=== PATIENT | female | born 1965 | race Caucasian/White ===

== ENCOUNTER 2024-09-16 05:44 | Day surgery (SDC) | payer BC ==
[2024-09-13 12:04] VITALS: BMI 37.0
[2024-09-16] MEDS ORDERED: SUGAMMADEX SODIUM 200 MG/2 ML VIAL ONE (06:23)
[2024-09-16] MEDS ORDERED: PROPOFOL 40 ML ONE (06:23)
[2024-09-16] MEDS ORDERED: Rocuronium Bromide 10 MG/ML (10ML VIAL) ONE (06:23)
[2024-09-16] MEDS ORDERED: Dexamethasone 4 mg/ml Vial ONE (06:23)
[2024-09-16] MEDS ORDERED: Lidocaine 1% PF 5 ML VIAL ONE (06:23)
[2024-09-16] MEDS ORDERED: Ondansetron PF 4 MG/2 ML Vial ONE (06:23)
[2024-09-16] MEDS ORDERED: fentaNYL 50 mcg/mL 1 mL Vial ONE (06:25)
[2024-09-16] MEDS ORDERED: Clindamycin/D5W 600 mg/50 ml Premix Bag ONE (07:00)
[2024-09-16] MEDS ORDERED: Midazolam HCl 2 mg/2 ml Vial ONE (07:00)
[2024-09-16] MEDS ORDERED: Lidocaine 2% PF 5 ML VIAL ONE (07:01)
[2024-09-16] MEDS ORDERED: PHENYLEPHRINE-NS 100 MCG/ML 10 ML SYRINGE ONE (07:20)
[2024-09-16] MEDS ORDERED: ePHEDrine Sulfate 50 MG/10 ML VIAL ONE (07:44)
[2024-09-16] MEDS ORDERED: Mupirocin 2% Ointment 22 GM Tube ONE (07:56)
[2024-09-16] MEDS ORDERED: Lidocaine 1% w/Epinephrine 1:100K 20 ML VIAL ONE (07:56)
[2024-09-16] MEDS ORDERED: Atropine Sulfate 0.4 mg/1 ml Vial ONE (08:17)
[2024-09-16] MEDS ORDERED: HYDROcodone/Acetaminophen 5/325 mg Tablet ONE (08:55)
== END 2024-09-16 09:30 | disposition home or self-care (01) ==
LOC: CSHSDC 05:44
PROVIDERS: ATTEND Otolaryngology Plastic Surgery within the Head & Neck
PROC: 09H Ear, Nose, Sinus, Insertion (ICD-10-PCS; principal; 2024-09-16)
DX: H90.A31 Mixed conductive and sensorineural hearing loss, unilateral, right ear with restricted hearing on the contralateral side (principal); I10 Essential (primary) hypertension; K21.9 Gastro-esophageal reflux disease without esophagitis; H65.01 Acute serous otitis media, right ear; H65.23 Chronic serous otitis media, bilateral; H69.83 Other specified disorders of Eustachian tube, bilateral; J30.9 Allergic rhinitis, unspecified; J34.3 Hypertrophy of nasal turbinates; J32.0 Chronic maxillary sinusitis; J32.2 Chronic ethmoidal sinusitis; Z90.710 Acquired absence of both cervix and uterus; Z87.59 Personal history of other complications of pregnancy, childbirth and the puerperium; Z88.1 Allergy status to other antibiotic agents; Z79.890 Hormone replacement therapy; Z79.82 Long term (current) use of aspirin; Z79.899 Other long term (current) drug therapy
CPT/HCPCS: 93005; 93010; J0461; J1100; J2250; J2405; J2704; J3010; J3490; L8690; Q9968